=== PATIENT | female | born 1965 | race African-American/Black ===

== ENCOUNTER 2018-12-07 18:12 | Emergency (ER) | payer OTHER ==
[~2018-12-07] VITALS: Ht 170.2 cm; Wt 97.0 kg
[~2018-12-07 18:12] MED LIST: ALPR0.25; HYDR-519; ZOLP5TAB2
[2018-12-07] MEDS ORDERED: KETOROLAC 30MG/ML VIAL IM ONE (20:15)
[2018-12-07] MEDS ORDERED: BACITRACIN ZINC OINT UDPKT TOP ONE (20:15)
[2018-12-07 20:32] VITALS: BP 147/86
== END 2018-12-07 20:33 | disposition home or self-care (01) ==
LOC: ER 18:12
DX: T23.131A Burn of first degree of multiple right fingers (nail), not including thumb, initial encounter (principal); G40.909 Epilepsy, unspecified, not intractable, without status epilepticus; J45.909 Unspecified asthma, uncomplicated; Z90.49 Acquired absence of other specified parts of digestive tract; Z98.51 Tubal ligation status; Z88.6 Allergy status to analgesic agent; Z88.0 Allergy status to penicillin; Z88.2 Allergy status to sulfonamides; X11.8XXA Contact with other hot tap-water, initial encounter; Y93.89 Activity, other specified; Y92.511 Restaurant or cafe as the place of occurrence of the external cause; Y99.8 Other external cause status
CPT/HCPCS: 16020; 96372; 99284; J1885